=== PATIENT | male | born 1965 | race American Indian/Alaskan Native ===

== ENCOUNTER 2016-07-01 06:28 | Day surgery (SDC) | payer OTHER ==
[~2016-07-01 06:28] MED LIST: NACL 0.9% 1000 ML 1,000 ML IV SCH
[2016-07-01] MEDS ORDERED: WATER FOR IRRIG STERILE IR ONE (07:09)
[2016-07-01] MEDS ORDERED: WATER FOR IRRIG STERILE ONE (07:10)
--- NOTE | 2016-07-01 07:33 | Anesthesia Day of Surgery ---
<KB TAY - Last Filed: 07/01/16 07:33> Anesthesia Day of Surgery - Day of Surgery Patient Examined: Yes Patient H&P Reviewed: Yes Patient is NPO: Yes <DEVYN PUGH - Last Filed: 07/01/16 07:37> Anesthesia Day of Surgery - Day of Surgery Beta Blockers: Yes
--- NOTE | 2016-07-01 07:33 | Anesthesia Consultation ---
Anesthesia Consult and Med Hx Date of service: 07/01/16 - Airway Anesthetic Teeth Evaluation: Good ROM Head & Neck: Adequate Mental/Hyoid Distance: Adequate Mallampati Class: Class II Intubation Access Assessment: Probably Good - Pulmonary Exam CTA: Yes - Cardiac Exam Cardiac Exam: RRR - Pre-Operative Health Status ASA Pre-Surgery Classification: ASA3 Proposed Anesthetic Plan: MAC - Pulmonary Hx Smoking: No Hx Asthma: No - Cardiovascular System Hx Hypertension: Yes Hx Heart Attack/AMI: No - Central Nervous System Hx Neuromuscular Disorder: No (gout) Hx Seizures: No CVA: No - Endocrine Hx Renal Disease: No Hx Cirrhosis: No Hx Thyroid Disease: No - Other Systems Hx Cancer: No Hx Obesity: Yes
[2016-07-01] MEDS ORDERED: DIPRIVAN 10 MG/ML IV ONE ×2 (07:54)
[2016-07-01] MEDS ORDERED: NACL 0.9% 1000 ML 1,000 ML IV SCH (08:00)
[2016-07-01] MEDS ORDERED: LOPRESSOR IV ONE (08:00)
--- NOTE | 2016-07-01 08:33 | Short Stay Summary ---
Short Stay Documentation - Allergies and Medications Current Medications: Allergies MALARIA VACCINE Allergy (Uncoded 05/28/15 14:04) Itching Home Medications Medication Instructions Recorded Confirmed Last Taken Type Allopurinol [Zyloprim] 300 mg PO QDAY 05/28/15 05/29/15 06/29/16 History Cyclobenzaprine [Flexeril] 10 mg PO TID PRN 05/28/15 05/29/15 06/29/16 History Ibuprofen [Motrin] 800 mg PO Q8HR PRN 05/28/15 05/29/15 06/29/16 History Lisinopril [Zestril TAB] 40 mg PO QDAY 05/28/15 05/29/15 06/29/16 History Metoprolol [Lopressor TAB] 50 mg PO QDAY 05/28/15 05/29/15 06/29/16 History NIFEdipine XL [Procardia Xl] 60 mg PO BID 05/28/15 05/28/15 06/29/16 History [place]-3 Fatty Acids/Fish Oil [Fish 1,000 mg PO QDAY 05/28/15 05/29/15 06/29/16 History Oil] Active Medications Sodium Chloride (Nacl 0.9% 1000 Ml) 1,000 mls @ 100 mls/hr IV DIRECT VICKIE Last Admin: 07/01/16 07:55 Dose: 100 mls/hr Sodium Chloride (Nacl 0.9% 1000 Ml) 1,000 mls @ 50 mls/hr IV DIRECT VICKIE - Brief post op/procedure progress note Date of procedure: 07/01/16 Pre-op diagnosis: Colon cancer screning Post-op diagnosis: same (1. Colon polyps 2. internal hemorrhoids) Procedure: Colonoscopy with biopsy Anesthesia: MAC Findings: as above Surgeon: DANIEL SCHAEFER Estimated blood loss: none Pathology: list (1. Ascending colon polyp 2. Sigmoid polyp 3. Rectal polyps) Specimen disposition: to lab Condition: stable - Disposition Disposition: DISCHARGED TO HOME OR SELFCARE Short Stay Discharge Plan Activity: no restrictions Weight Bearing Status: Full Weight Bearing Diet: low salt Follow up with: REGAN ALBARRAN MD [Primary Care Provider] - 7 Days
[2016-07-01 08:58] VITALS: BP 140/79
--- NOTE | 2016-07-01 10:03 | Post Anesthesia Evaluation ---
- Post Anesthesia Evaluation Patient Participated: Yes Airway Patent: Yes Stable Respiratory Function: Yes Nausea/Vomiting: No Temp > 96.8F: Yes Pain Manageable: Yes Adequeate Hydration: Yes Anesthesia Complications: No Block Receding Appropriately: Not Applicable Patient on Ventilator: No
== END 2016-07-01 06:29 | disposition home or self-care (01) ==
LOC: GIO 06:28
PROVIDERS: ATTEND Internal Medicine Gastroenterology
DX: Z12.11 Encounter for screening for malignant neoplasm of colon (principal); D12.5 Benign neoplasm of sigmoid colon; K63.5 Polyp of colon; K62.1 Rectal polyp; K64.8 Other hemorrhoids; I10 Essential (primary) hypertension; E66.9 Obesity, unspecified; Z68.35 Body mass index [BMI] 35.0-35.9, adult
CPT/HCPCS: 45380; 88305; 96374; J2704; J7030

== ENCOUNTER 2017-07-13 06:18 | Day surgery (SDC) | payer OTHER ==
[2017-07-13] MEDS ORDERED: NACL 0.9% 1000 ML 1,000 ML ONE (06:56)
[2017-07-13] MEDS ORDERED: WATER FOR IRRIG STERILE IR ONE (07:09)
[2017-07-13] MEDS ORDERED: LOPRESSOR IV ONE (08:18)
--- NOTE | 2017-07-13 08:53 | Short Stay Summary ---
Short Stay Documentation - Allergies and Medications Current Medications: Allergies MALARIA VACCINE Allergy (Uncoded 05/28/15 14:04) Itching Home Medications Medication Instructions Recorded Confirmed Last Taken Type Allopurinol [Zyloprim] 300 mg PO QDAY 05/28/15 05/29/15 06/29/16 History Cyclobenzaprine [Flexeril] 10 mg PO TID PRN 05/28/15 05/29/15 06/29/16 History Ibuprofen [Motrin] 800 mg PO Q8HR PRN 05/28/15 05/29/15 06/29/16 History Lisinopril [Zestril TAB] 40 mg PO QDAY 05/28/15 05/29/15 06/29/16 History Metoprolol [Lopressor TAB] 50 mg PO QDAY 05/28/15 05/29/15 06/29/16 History NIFEdipine XL [Procardia Xl] 60 mg PO BID 05/28/15 05/28/15 06/29/16 History [place]-3 Fatty Acids/Fish Oil [Fish 1,000 mg PO QDAY 05/28/15 05/29/15 06/29/16 History Oil] - Brief post op/procedure progress note Date of procedure: 07/13/17 Pre-op diagnosis: 1. Colon cancer screening 2. History of colon polyps Post-op diagnosis: same (1. Colon polyps 2. Internal hemorrhoids) Procedure: Colonoscopy with cold biopsy polypectomy Anesthesia: MAC Findings: as above Surgeon: DANIEL SCHAEFER Estimated blood loss: none Pathology: list (Hepatic flexure polyps) Specimen disposition: to lab Condition: stable - Disposition Condition at discharge: Stable Disposition: DC- TO HOME OR SELFCARE Short Stay Discharge Plan Activity: no restrictions Diet: regular, low salt Additional Instructions: Post Sedation D/C Instructions When you return home you may resume your regular diet unless otherwise directed. -Go directly home from the hospital and rest quietly. You may resume normal activities tomorrow. -Do NOT drive, return to work, operate any machinery or make any important personal or business decisions today. -Do NOT drink any alcohol or take nerve or sleeping drugs. They add to the effects of the medicine still present in your body. Follow up with: REGAN ALBARRAN MD [Primary Care Provider] - 7 Days
[2017-07-13] MEDS ORDERED: DIPRIVAN 10 MG/ML IV ONE ×2 (08:54)
[2017-07-13 09:17] VITALS: BP 149/81
--- NOTE | 2017-07-13 09:32 | Anesthesia Consultation ---
Anesthesia Consult and Med Hx Date of service: 07/13/17 - Airway Anesthetic Teeth Evaluation: Good ROM Head & Neck: Adequate Mental/Hyoid Distance: Adequate Mallampati Class: Class III Intubation Access Assessment: Possibly Difficult - Pulmonary Exam CTA: Yes - Cardiac Exam Cardiac Exam: RRR - Pre-Operative Health Status ASA Pre-Surgery Classification: ASA3 Proposed Anesthetic Plan: MAC - Cardiovascular System Hx Hypertension: Yes
--- NOTE | 2017-07-13 09:32 | Anesthesia Day of Surgery ---
Anesthesia Day of Surgery - Day of Surgery Patient Examined: Yes Patient H&P Reviewed: Yes Patient is NPO: Yes Beta Blockers: Yes
--- NOTE | 2017-07-13 09:54 | Post Anesthesia Evaluation ---
- Post Anesthesia Evaluation Patient Participated: Yes Airway Patent: Yes Stable Respiratory Function: Yes Nausea/Vomiting: No Temp > 96.8F: Yes Pain Manageable: Yes Adequeate Hydration: Yes Anesthesia Complications: No
[2017-07-13] MEDS ORDERED: NACL 0.9% 1000 ML 1,000 ML IV SCH (12:00)
== END 2017-07-13 06:19 | disposition home or self-care (01) ==
LOC: GIO 06:18
PROVIDERS: ATTEND Internal Medicine Gastroenterology
DX: Z08 Encounter for follow-up examination after completed treatment for malignant neoplasm (principal); D12.3 Benign neoplasm of transverse colon; K64.8 Other hemorrhoids; I10 Essential (primary) hypertension; Z86.010 Personal history of colon polyps
CPT/HCPCS: 45380; 88305; J2704; J7030

== ENCOUNTER 2021-06-30 08:21 | Outpatient (CLI) | payer OTHER ==
--- NOTE | 2021-06-30 12:00 | Ultrasound Report ---
ULTRASOUND RENAL INDICATION / CLINICAL INFORMATION: I10 ESSENTIAL HYPERTENSION N18.3 POST-TRAUMATIC ARTHROSIS. COMPARISON: None available. FINDINGS: RIGHT KIDNEY: Length = 10.0 cm. - Echogenicity: Mildly echogenic. - Parenchymal Thickness: Normal. - Hydronephrosis: None. - Cyst / Mass: None. - Stones: None seen. LEFT KIDNEY: Length = 11.6 cm. - Echogenicity: Mildly echogenic. - Parenchymal Thickness: Normal. - Hydronephrosis: None. - Cyst / Mass: None. - Stones: None seen. URINARY BLADDER: No significant abnormality. FREE FLUID: None. ADDITIONAL FINDINGS: None. IMPRESSION: 1. 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 2. No evidence of renal mass or hydronephrosis. Scribed by: Thais Pena RDMS, CASE, RHONDA Scribed: 06/30/2021 10:04 AM I have reviewed the images, agree with this report, and edited this report as needed. Signer Name: Ras Tubbs MD Signed: 06/30/2021 11:45 AM Workstation Name: [employer]
== END 2021-06-30 08:22 | disposition home or self-care (01) ==
LOC: US 08:21
PROVIDERS: ATTEND Internal Medicine Nephrology
DX: I12.9 Hypertensive chronic kidney disease with stage 1 through stage 4 chronic kidney disease, or unspecified chronic kidney disease (principal); N18.30 Chronic kidney disease, stage 3 unspecified
CPT/HCPCS: 76770